=== PATIENT | male | born 1960 | race Caucasian/White ===

== ENCOUNTER 2016-09-24 11:34 | Emergency (ER) | payer OTHER ==
[~2016-09-24] VITALS: Ht 167.6 cm; Wt 83.9 kg
--- NOTE | ~2016-09-24 | CR63 ---
[facility] A Service of [facility] & [facility] RADIOLOGY TEXT RESULTS PATIENT: ANTONY ZEPEDA LOCATION: CFTX : 58 UNIT #: [id number] AGE: [address]: Dorys Gallardo APRN SEX: M ORDER DR: [id number] [facility] [address] [place], [place] [address] [id number] MR#: [id number] Acc #: [id number] NAME: ANTONY ZEPEDA : 1960 SEX: M STUDY DATE/TIME: 09/24/2016 12:12 UNIT: [facility] ROOM: STUDY DESCRIPTION: CR Chest 2 View Attending Physician: Dorys Gallardo A.P.R.N. Ordering Physician: Ed Anthony Shepherd M.D. Primary Care Physician: Primary Care Physician No MEDICAL IMAGING REPORT This report is preliminary unless electronic signature is present EXAM Chest x-ray, 09/24 INDICATIONS Fever, weakness and cough for 1 week. FINDINGS Two views of the chest were obtained. No comparison. Lungs are clear except for a granuloma at the left base. Cardiac and mediastinal contours are normal. No pneumothorax. IMPRESSION No active disease. Dictated by... Kai Baez Jr., M.D. THIS IS AN ELECTRONICALLY VERIFIED REPORT Kai Baez Jr., M.D. at 09/25/2016 7:09 AM DANAE/dorota TD: 09/24/2016 21:39 JOB #: [id number] MEDICAL IMAGING REPORT Page 1 of 1 COPY
[2016-09-24 12:12] LABS: INFLUENZA A NEG (NEG); INFLUENZA B NEG (NEG)
[2016-09-24 12:50] LABS: BASOPHIL% 0.7 % (0-2.5); EOSINOPHIL# 0.1 X10e3 (0-0.7); EOSINOPHIL% 1.4 % (0.0-7.0); HEMATOCRIT 45.7 % (38.0-50.0); HEMOGLOBIN 15.2 gm/dL (13.0-16.0); LYMPHOCYTE# 0.8 X10e3 (1.0-3.5); MEAN CORPUSCULAR HEMOGLOBIN 31.2 PG (28-34); MEAN CORPUSCULAR HGB CONC 33.2 g/dL (30-36); MEAN PLATELET VOLUME 7.7 FL (6.5-11.5); MONOCYTE# 0.6 X10e3 (0-1.0); MONOCYTE% 10.7 % (3.0-12.0); NEUTROPHIL# 4.4 X10e3 (1.5-7.1); NEUTROPHIL% 74.2 % (40-75); PLATELET COUNT 103 X10e3 (140-420); RED BLOOD COUNT 4.86 X10e (3.90-5.60); RED CELL DISTRIBUTION WIDTH 13.6 % (11.0-15.5); WHITE BLOOD COUNT 5.9 X10e3 (4.0-10.5)
[2016-09-24 12:53] LABS: DIFF IND NO
[2016-09-24 13:20] LABS: ALBUMIN SERUM 4.3 g/dL (3.5-5.0); BILIRUBIN,TOTAL 0.5 mg/dL (0.2-2.0); BUN/CREATININE RATIO 15.55; CALCIUM SERUM 9.7 mg/dL (8.4-10.2); CREATININE SERUM 0.9 mg/dL (0.6-1.4); GLOM FILT RATE Estimated 94.5 mL/min (>60); POTASSIUM 4.1 mmol/L (3.5-5.1)
== END 2016-09-24 14:08 | disposition home or self-care (01) ==
LOC: CFTX 11:34 → CED 11:34 → CFTX 12:28
PROVIDERS: Nurse Practitioner
DX: R53.83 Other fatigue (principal); F31.9 Bipolar disorder, unspecified; F17.200 Nicotine dependence, unspecified, uncomplicated; Z90.89 Acquired absence of other organs
CPT/HCPCS: 36415; 71020; 80053; 85025; 86308; 87651; 87804; 99283